=== PATIENT | male | born 1970 | race American Indian/Alaskan Native ===

== ENCOUNTER 2016-10-11 05:41 | Emergency (ER) | payer MEDICAID, OTHER ==
[2016-10-11 05:43] VITALS: BMI 26.3
[2016-10-11 05:56] VITALS: RESP 18
--- NOTE | 2016-10-11 06:13 | ED PDOC ---
Arrival/HPI - General Chief Complaint: Shortness Of Breath Time Seen by Provider: 10/11/16 05:59 Historian: Patient - History of Present Illness Narrative History of Present Illness (Text): 10/11/16 06:03 Ottoniel Rock Jr is a 46 year old male smoker, with no significant past medical history, who presents to the Emergency department brought in by EMS complaining of chest discomfort. Patient states for the past 3 days he has been experiencing chest heaviness with associated shortness of breath and intermittent palpitations. Patient states he used an inhaler at home but denies any significant relief. Patient denies any fever, chills, nausea, vomiting, diarrhea, urinary symptoms, back pain, neck pain, headache, dizziness, or any other complaints. Time/Duration: < week (3 days) Symptom Onset: Gradual Symptom Course: Unchanged, Intermittent Activities at Onset: Rest, Light Context: Home Past Medical History - Provider Review Nursing Documentation Reviewed: Yes - Infectious Disease Hx of Infectious Diseases: None - Past Medical History Past Medical History: No Previous - Cardiac Hx Cardiac Disorders: (rheumatic heart disease 15 yrs old) - Pulmonary Hx Respiratory Disorders: No - Neurological Hx Neurological Disorder: No - HEENT Hx HEENT Disorder: No - Renal Hx Renal Disorder: No - Endocrine/Metabolic Hx Endocrine Disorders: No - Hematological/Oncological Hx Blood Disorders: No - Integumentary Hx Dermatological Disorder: No - Musculoskeletal/Rheumatological Hx Musculoskeletal Disorders: Yes Hx Falls: Yes (fell down stairs 2 yrs ago) - Gastrointestinal Hx Gastrointestinal Disorders: No - Genitourinary/Gynecological Hx Genitourinary Disorders: No - Psychiatric Hx Psychophysiologic Disorder: No Hx Anxiety: No Hx Bipolar Disorder: No Hx Depression: No Hx Emotional Abuse: No Hx Hallucinations: No Hx Panic Disorder: No Hx Post Traumatic Stress Disorder: No Hx Psychosis: No Hx Physical Abuse: No Hx Schizophrenia: No Hx Sexual Abuse: No Hx Substance Use: No - Surgical History Hx Orthopedic Surgery: Yes (FINGER) - Anesthesia Hx Anesthesia: Yes Hx Anesthesia Reactions: No Hx Malignant Hyperthermia: No - Suicidal Assessment Feels Threatened In Home Enviroment: No Family/Social History - Physician Review Nursing Documentation Reviewed: Yes Family/Social History: No Known Family HX Smoking Status: Light Smoker < 10 Cigarettes Daily Hx Alcohol Use: No Hx Substance Use: No Hx Substance Use Treatment: No Allergies/Home Meds Allergies/Adverse Reactions: Allergies No Known Allergies Allergy (Verified 03/16/16 17:57) Home Medications: Home Meds Medication Instructions Recorded Confirmed No Known Home Med 03/16/16 10/11/16 Review of Systems - Physician Review All systems were reviewed & negative as marked: Yes - Review of Systems Constitutional: Normal. absent: Fevers Eyes: Normal ENT: Normal. absent: Epistaxis Respiratory: SOB Cardiovascular: Chest Pain, Palpitations Gastrointestinal: Normal. absent: Abdominal Pain, Diarrhea, Nausea, Vomiting Genitourinary Male: Normal. absent: Dysuria, Frequency, Hematuria, Urinary Output Changes Musculoskeletal: Normal. absent: Back Pain, Neck Pain Skin: Normal. absent: Rash Neurological: Normal. absent: Headache, Dizziness Endocrine: Normal Hemo/Lymphatic: Normal Psychiatric: Normal Physical Exam Vital Signs Reviewed: Yes Vital Signs Temp Pulse Resp BP Pulse Ox 10/11/16 06:02 18 97 10/11/16 05:51 98.2 F 92 H 18 122/82 98 Temperature: Afebrile Blood Pressure: Normal Pulse: Regular Respiratory Rate: Normal Appearance: Positive for: Well-Appearing, Non-Toxic, Comfortable Pain Distress: None Mental Status: Positive for: Alert and Oriented X 3 - Systems Exam Head: Present: Atraumatic, Normocephalic Pupils: Present: PERRL Extroacular Muscles: Present: EOMI Conjunctiva: Present: Normal Mouth: Present: Moist Mucous Membranes Neck: Present: Normal Range of Motion Respiratory/Chest: Present: Clear to Auscultation, Good Air Exchange. No: Respiratory Distress, Accessory Muscle Use Cardiovascular: Present: Regular Rate and Rhythm, Normal S1, S2. No: Murmurs Abdomen: Present: Normal Bowel Sounds. No: Tenderness, Distention, Peritoneal Signs Back: Present: Normal Inspection Upper Extremity: Present: Normal Inspection. No: Cyanosis, Edema Lower Extremity: Present: Normal Inspection. No: Edema Neurological: Present: GCS=15, CN II-XII Intact, Speech Normal Skin: Present: Warm, Dry, Normal Color. No: Rashes Psychiatric: Present: Alert, Oriented x 3, Normal Insight, Normal Concentration Medical Decision Making ED Course and Treatment: 10/11/16 06:03 Impression: 46 year old male complaining of chest heaviness, shortness of breath, and palpitations. Plan: -- EKG -- Chest X-ray -- Labs, cardiac enzymes, D-dimer -- Aspirin -- Reassess and disposition Progress Notes: Reviewed EKG, NSR at 91 bpm. LAD. Septal infarct. Non-specific ST/T wave changes. 10/11/16 7:[address] Hernandez, pending Chest X-ray, labs, re-assessment, and final disposition. - Lab Interpretations Lab Results: 10/11/16 06:20 10/11/16 06:20 Lab Results 10/11/16 06:20: WBC 7.6 D, RBC 4.24, Hgb 13.3 L, Hct 38.7 L, MCV 91.3, MCH 31.4 , MCHC 34.4, RDW 14.4, Plt Count 198, MPV 8.8 10/11/16 06:20: Sodium 140, Potassium 4.6, Chloride 105, Carbon Dioxide 30, Anion Gap 10, BUN 15, Creatinine 1.1, Est GFR ( Amer) > 60, Est GFR (Non- Af Amer) > 60, Random Glucose 148 H, Calcium 9.3, Total Bilirubin 0.7, AST 28, ALT 35, Alkaline Phosphatase 70, Lactate Dehydrogenase 466, Total Creatine Kinase 173, Troponin I < 0.01, Total Protein 7.4, Albumin 4.0, Globulin 3.4, Albumin/Globulin Ratio 1.2 10/11/16 06:20: PT 10.7, INR 0.99, APTT 30.4 - RAD Interpretation Radiology Orders: 10/11/16 06:07 CHEST PORTABLE [RAD] Stat - EKG Interpretation Interpreted by ED Physician: Yes Type: 12 lead EKG - Medication Orders Current Medication Orders: Discontinued Medications Aspirin (Aspirin) 325 mg PO ONCE STA Stop: 10/11/16 06:10 Last Admin: 10/11/16 06:34 Dose: 325 mg - Scribe Statement The provider has reviewed the documentation as recorded by the Silvaibcharlie Galdamez All medical record entries made by the Radha were at my direction and personally dictated by me. I have reviewed the chart and agree that the record accurately reflects my personal performance of the history, physical exam, medical decision making, and the department course for this patient. I have also personally directed, reviewed, and agree with the discharge instructions and disposition. Disposition/Present on Arrival - Present on Arrival Any Indicators Present on Arrival: No History of DVT/PE: No History of Uncontrolled Diabetes: No Urinary Catheter: No History of Decub. Ulcer: No History Surgical Site Infection Following: None - Disposition Have Diagnosis and Disposition been Completed?: No Diagnosis: Chest pain Disposition Time: 07:00 Condition: STABLE Discharge Instructions (ExitCare): Chest Pain (ED) Referrals: Elizabeth Oreilly MD [Primary Care Provider] - Follow up with primary
[2016-10-11 06:30] LABS: HEMATOCRIT 38.7 % (42.0-52.0); MEAN CELL VOLUME 91.3 fL (80.0-105.0); MEAN CORPUSCULAR HEMOGLOBIN 31.4 pg (25.0-35.0); MEAN CORPUSCULAR HGB CONC 34.4 g/dl (31.0-37.0); MEAN PLATELET VOLUME 8.8 fl (7.0-11.0); RED CELL DISTRIBUTION WIDTH 14.4 % (11.5-14.5); WHITE BLOOD COUNT 7.6 10^3/ul (4.5-11.0)
[2016-10-11 06:41] LABS: ALB/GLOB RATIO 1.2 (1.1-1.8); ALKALINE PHOSPHATASE 70 U/L (38-133); ALT/SGPT 35 U/L (7-56); AST/SGOT 28 U/L (15-59); BILIRUBIN,TOTAL 0.7 mg/dL (0.2-1.3); BLOOD UREA NITROGEN 15 mg/dL (7-21); CALCIUM 9.3 mg/dL (8.4-10.5); CARBON DIOXIDE 30 mmol/L (21-33); CHLORIDE 105 mmol/L (98-107); GFR AFRICAN-AMERICAN > 60; GLUCOSE,RANDOM 148 mg/dL (70-110); POTASSIUM 4.6 mmol/L (3.6-5.0); SODIUM 140 mmol/L (132-148); TOTAL PROTEIN 7.4 g/dL (5.8-8.3)
[2016-10-11 06:46] LABS: INR 0.99 (0.93-1.08); PARTIAL THROMBOPLASTIN TIME 30.4 Seconds (23.7-30.8)
[2016-10-11 07:04] LABS: TROPONIN I < 0.01 ng/mL
[2016-10-11] MEDS ORDERED: Iodixanol 320 MG/ML 100 ML BOTTLE IV ONE (07:44)
[2016-10-11 08:00] VITALS: TEMP 97.9
--- NOTE | 2016-10-11 09:03 | CT ---
PROCEDURE: CT Chest with contrast (Pulmonary Angiogram) HISTORY: sob, elev dimer r/o PE COMPARISON: None available. TECHNIQUE: Axial computed tomography images were obtained of the chest in the pulmonary arterial phase of enhancement. Coronal and sagittal reformatted images were created and reviewed. Intravenous contrast dose: 100 cc of Omnipaque 300 Radiation dose: Total exam DLP = 397 mGy-cm. This CT exam was performed using one or more of the following dose reduction techniques: Automated exposure control, adjustment of the mA and/or kV according to patient size, and/or use of iterative reconstruction technique. FINDINGS: PULMONARY ARTERIES: Limited by timing of intravenous bolus. No pulmonary embolism. AORTA: No acute findings. No thoracic aortic aneurysm. LUNGS: Patchy consolidation in the left lower lobe as well as additional patchy areas of infiltrate in the left upper lobe and right upper lobe. 5 millimeter nodule in the medial segment of the right upper lobe. PLEURAL SPACES: Unremarkable. No effusion or pneuomothorax. HEART: Unremarkable. No cardiomegaly. No significant pericardial effusion. LYMPH NODES: No lymphadenopathy. BONES, CHEST WALL: Unremarkable. No fracture or destructive lesion OTHER FINDINGS: Unremarkable. IMPRESSION: Extensive bilateral patchy infiltrates most notably in the medial segment of the left lower lobe with consolidation. No gross pulmonary embolism.
[2016-10-11] MEDS ORDERED: levoFLOXacin 750 MG TAB PO STA (09:18)
[2016-10-11 10:03] VITALS: BP 145/79; PULSE 78; O2SAT 98
--- NOTE | 2016-10-11 10:43 | ED PDOC ---
Physical Exam Vital Signs Reviewed: Yes Vital Signs Temp Pulse Resp BP Pulse Ox 10/11/16 09:00 78 18 145/79 98 10/11/16 07:00 97.9 F 77 18 141/71 99 10/11/16 06:02 18 97 10/11/16 05:51 98.2 F 92 H 18 122/82 98 Temperature: Afebrile Blood Pressure: Normal Pulse: Regular Respiratory Rate: Normal Appearance: Positive for: Well-Appearing, Non-Toxic, Comfortable Pain Distress: None Mental Status: Positive for: Alert and Oriented X 3 Medical Decision Making ED Course and Treatment: 10/11/16 07:00 Case signed out to me from overnight by Dr. Alvarez, pending imaging, reevaluation, and disposition. The patient is a 46 year old male who came into the emergency department earlier today for evaluation of chest discomfort. Patient had a EKG which showed a NSR at 91 BPM with LAD and septal infarct. On reevaluation, the patient is resting comfortably. 10/11/16 07:30 Chest X-ray impression: As read by me, bilateral patchy infiltrates. Will order a Chest CT. 10/11/16 09:[address]: Creator : Severo Jacobson MD COMPARISON: None available. FINDINGS: PULMONARY ARTERIES: Limited by timing of intravenous bolus. No pulmonary embolism. AORTA: No acute findings. No thoracic aortic aneurysm. LUNGS: Patchy consolidation in the left lower lobe as well as additional patchy areas of infiltrate in the left upper lobe and right upper lobe. 5 millimeter nodule in the medial segment of the right upper lobe. PLEURAL SPACES: Unremarkable. No effusion or pneuomothorax. HEART: Unremarkable. No cardiomegaly. No significant pericardial effusion. LYMPH NODES: No lymphadenopathy. BONES, CHEST WALL: Unremarkable. No fracture or destructive lesion OTHER FINDINGS: Unremarkable. IMPRESSION: Extensive bilateral patchy infiltrates most notably in the medial segment of the left lower lobe with consolidation. No gross pulmonary embolism. 10/11/16 09:09 On re-evaluation, the patient feels better and is in no acute distress. No respiratory distress. No tachpnea. WBC nl. No fever. Vitals nl. Oxy sat normal. I have discussed the results and plan with the patient, who expresses understanding. Patient in agreement with plan to discharged home with Levaquin and Albuterol. Patient is stable for discharge. Patient was instructed to follow up with physician/clinic in 1-2 days or return if symptoms worsen or new concerning symptoms arise. - Lab Interpretations Lab Results: 10/11/16 06:20 10/11/16 06:20 Lab Results 10/11/16 06:20: D-Dimer, Quantitative 0.56 H 10/11/16 06:20: WBC 7.6 D, RBC 4.24, Hgb 13.3 L, Hct 38.7 L, MCV 91.3, MCH 31.4 , MCHC 34.4, RDW 14.4, Plt Count 198, MPV 8.8 10/11/16 06:20: Sodium 140, Potassium 4.6, Chloride 105, Carbon Dioxide 30, Anion Gap 10, BUN 15, Creatinine 1.1, Est GFR ( Amer) > 60, Est GFR (Non- Af Amer) > 60, Random Glucose 148 H, Calcium 9.3, Total Bilirubin 0.7, AST 28, ALT 35, Alkaline Phosphatase 70, Lactate Dehydrogenase 466, Total Creatine Kinase 173, Troponin I < 0.01, Total Protein 7.4, Albumin 4.0, Globulin 3.4, Albumin/Globulin Ratio 1.2 10/11/16 06:20: PT 10.7, INR 0.99, APTT 30.4 I have reviewed the lab results: Yes - RAD Interpretation Radiology Orders: 10/11/16 06:07 CHEST PORTABLE [RAD] Stat 10/11/16 07:30 ANGIO CHEST PE PROTOCOL [CT] Stat - Medication Orders Current Medication Orders: Discontinued Medications Aspirin (Aspirin) 325 mg PO ONCE STA Stop: 10/11/16 06:10 Last Admin: 10/11/16 06:34 Dose: 325 mg Iodixanol (Visipaque 320 Mg/Ml 100 Ml) Confirm Administered Dose 100 ml IV .STK- MED ONE Stop: 10/11/16 07:45 Levofloxacin (Levaquin) 750 mg PO STAT STA Stop: 10/11/16 09:19 Last Admin: 10/11/16 10:02 Dose: 750 mg - Scribe Statement The provider has reviewed the documentation as recorded by the Radha Aguayo Provider Silvaibe Attestation: All medical record entries made by the Silvaibcharlie were at my direction and personally dictated by me. I have reviewed the chart and agree that the record accurately reflects my personal performance of the history, physical exam, medical decision making, and the department course for this patient. I have also personally directed, reviewed, and agree with the discharge instructions and disposition. Disposition/Present on Arrival - Present on Arrival Any Indicators Present on Arrival: No History of DVT/PE: No History of Uncontrolled Diabetes: No Urinary Catheter: No History of Decub. Ulcer: No History Surgical Site Infection Following: None - Disposition Have Diagnosis and Disposition been Completed?: Yes Diagnosis: Chest pain, Pneumonia Disposition: HOME/ ROUTINE Disposition Time: 09:09 Patient Plan: Discharge Condition: IMPROVED Discharge Instructions (ExitCare): Chest Pain (ED) Additional Instructions: Mr Rock, thank you for letting us take care of you today. Your provider was Dr. Hernandez. You were treated for Pneumonia. The emergency medical care you received today was directed at your acute symptoms. If you were prescribed any medication, please fill it and take as directed. It may take several days for your symptoms to resolve. Return to the Emergency Department if your symptoms worsen, do not improve, or if you have any other problems. Please contact your doctor or call one of the physicians/clinics you have been referred to that are listed on the Patient Visit Information form that is included in your discharge packet. Bring any paperwork you were given at discharge with you along with any medications you are taking to your follow up visit. Our treatment cannot replace ongoing medical care by a primary care provider (PCP) outside of the emergency department. Thank you for allowing the [facility] [employer] team to be part of your care today. If you had an X-Ray or CT scan: A Radiologist will review the ED reading if any change in treatment is needed we will contact you. If you had a blood, urine, or wound culture: It will take several days for the results, if any change in treatment is needed we will contact you. If you had an STI test: It will take 48 hours for the results. Please call after 1 week if you have not heard back. Prescriptions: Albuterol 0.083% [Albuterol 0.083% Inhal Vonda (2.5 mg/3 ml) UD] 2.5 mg IH PRN PRN #1 neb PRN Reason: Shortness Of Breath Levofloxacin [Levaquin] 750 mg PO DAILY #4 tablet Referrals: Elizabeth Oreilly MD [Primary Care Provider] - Follow up with primary Forms: [employer] (Finnish), WORK NOTE
--- NOTE | 2016-10-11 11:39 | RAD ---
PROCEDURE: CHEST RADIOGRAPH, 1 VIEW HISTORY: sob COMPARISON: None available. FINDINGS: LUNGS: Clear. PLEURA: No pneumothorax or pleural fluid seen. CARDIOVASCULAR: Normal. OSSEOUS STRUCTURES: No significant abnormalities. VISUALIZED UPPER ABDOMEN: Normal. OTHER FINDINGS: None. IMPRESSION: No active disease.
--- NOTE | 2016-10-11 18:51 | CARD ---
APPROVED REPORT EKG Measurement Heart [id number] <Conclusion> Normal sinus rhythm Possible Left atrial enlargement Left axis deviation Septal infarct, age undetermined Abnormal ECG
== END 2016-10-11 10:06 | disposition home or self-care (01) ==
LOC: ED 05:41
DX: R07.9 Chest pain, unspecified (principal)
CPT/HCPCS: 71010; 71275; 80053; 82550; 83615; 84484; 85027; 85378; 85610; 85730; 93005; 99284; Q9967

== ENCOUNTER 2016-10-11 11:41 | Emergency (ER) | payer SELFPAY ==
[2016-10-11 11:46] VITALS: BMI 25.9
[2016-10-11 11:55] VITALS: RESP 18; TEMP 98.4
--- NOTE | 2016-10-11 12:08 | ED PDOC ---
Arrival/HPI - General Chief Complaint: Anxiety Time Seen by Provider: 10/11/16 11:42 Historian: Patient - History of Present Illness Narrative History of Present Illness (Text): 10/11/16 11:42 A 46 year old male, who denies any significant past medical history, present to the emergency department complaining of shortness of breath. Patient reports he was just in the emergency department and discharged home. He states he went home to collect his belongs because he got into an argument with his , when he started to get anxious. Patient notes the anxiousness is associated with shortness of breath, which has improved with oxygen here in the emergency department. Typically he doesn't get short of breathe this much but he thinks the Pneumonia has made it worse. Patient denies any fever, chills, nausea, vomiting or other complaints at this time. PMD: Dr. Oreilly Time/Duration: Prior to Arrival Symptom Onset: Sudden Symptom Course: Improving Quality: Other Activities at Onset: Rest Context: Home Past Medical History - Provider Review Nursing Documentation Reviewed: Yes - Infectious Disease Hx of Infectious Diseases: None - Past Medical History Past Medical History: No Previous - Cardiac Hx Cardiac Disorders: Yes (rheumatic heart disease 15 yrs old) - Pulmonary Hx Respiratory Disorders: No - Neurological Hx Neurological Disorder: No - HEENT Hx HEENT Disorder: No - Renal Hx Renal Disorder: No - Endocrine/Metabolic Hx Endocrine Disorders: No - Hematological/Oncological Hx Blood Disorders: No - Integumentary Hx Dermatological Disorder: No - Musculoskeletal/Rheumatological Hx Musculoskeletal Disorders: Yes Hx Falls: Yes (fell down stairs 2 yrs ago) - Gastrointestinal Hx Gastrointestinal Disorders: No - Genitourinary/Gynecological Hx Genitourinary Disorders: No - Psychiatric Hx Psychophysiologic Disorder: No Hx Anxiety: No Hx Bipolar Disorder: No Hx Depression: No Hx Emotional Abuse: No Hx Hallucinations: No Hx Panic Disorder: No Hx Post Traumatic Stress Disorder: No Hx Psychosis: No Hx Physical Abuse: No Hx Schizophrenia: No Hx Sexual Abuse: No Hx Substance Use: No - Surgical History Hx Orthopedic Surgery: Yes (FINGER) - Anesthesia Hx Anesthesia: Yes Hx Anesthesia Reactions: No Hx Malignant Hyperthermia: No - Suicidal Assessment Feels Threatened In Home Enviroment: No Family/Social History - Physician Review Nursing Documentation Reviewed: Yes Family/Social History: Unknown Family HX Smoking Status: Light Smoker < 10 Cigarettes Daily Hx Alcohol Use: No Hx Substance Use: No Hx Substance Use Treatment: No Allergies/Home Meds Allergies/Adverse Reactions: Allergies No Known Allergies Allergy (Verified 10/11/16 11:46) Review of Systems - Physician Review All systems were reviewed & negative as marked: Yes - Review of Systems Constitutional: absent: Fevers Respiratory: SOB Gastrointestinal: absent: Nausea, Vomiting Psychiatric: Anxiety Physical Exam Vital Signs Reviewed: Yes Vital Signs Temp Pulse Resp BP Pulse Ox 10/11/16 11:53 98.4 F 95 H 18 115/74 98 Temperature: Afebrile Blood Pressure: Normal Pulse: Regular Respiratory Rate: Normal Appearance: Positive for: Well-Appearing, Non-Toxic, Comfortable Pain Distress: None Mental Status: Positive for: Alert and Oriented X 3 - Systems Exam Head: Present: Atraumatic, Normocephalic Pupils: Present: PERRL Extroacular Muscles: Present: EOMI Conjunctiva: Present: Normal Mouth: Present: Moist Mucous Membranes Neck: Present: Normal Range of Motion Respiratory/Chest: Present: Clear to Auscultation, Good Air Exchange. No: Respiratory Distress, Accessory Muscle Use Cardiovascular: Present: Regular Rate and Rhythm, Normal S1, S2. No: Murmurs Abdomen: Present: Normal Bowel Sounds. No: Tenderness, Distention, Peritoneal Signs Back: Present: Normal Inspection Upper Extremity: Present: Normal Inspection. No: Cyanosis, Edema Lower Extremity: Present: Normal Inspection. No: Edema Neurological: Present: GCS=15, CN II-XII Intact, Speech Normal Skin: Present: Warm, Dry, Normal Color. No: Rashes Psychiatric: Present: Alert, Oriented x 3, Normal Insight, Normal Concentration Medical Decision Making ED Course and Treatment: 10/11/16 11:42 Impression: A 46 year old male with shortness of breath. Differential Diagnosis include but are not limited to: Pneumonia Plan: -- Blood cultures -- Already treated with Levaquin this morning -- Admission Patient was with police because a domestic issue was called. Prior Visits: Notes and results from previous visits were reviewed. The patient was in the emergency department earlier today and he was found to have pneumonia. Patient was discharged home and instructed to follow up with PMD. Progress Notes: Case discussed with Dr. Oreilly, who is aware and accepts the patient to her services for pneumonia. I have discussed the results and plan with the patient, who expresses understanding. Patient given the opportunity to ask question, all questions were answered and there is agreement with the plan to be admitted to the hospital. - Scribe Statement The provider has reviewed the documentation as recorded by the Radha Aguayo Provider Silvaibe Attestation: All medical record entries made by the Silvaibe were at my direction and personally dictated by me. I have reviewed the chart and agree that the record accurately reflects my personal performance of the history, physical exam, medical decision making, and the department course for this patient. I have also personally directed, reviewed, and agree with the discharge instructions and disposition. Disposition/Present on Arrival - Present on Arrival Any Indicators Present on Arrival: No History of DVT/PE: No History of Uncontrolled Diabetes: No Urinary Catheter: No History of Decub. Ulcer: No History Surgical Site Infection Following: None - Disposition Have Diagnosis and Disposition been Completed?: Yes Diagnosis: Pneumonia Disposition: HOSPITALIZED Disposition Time: 11:42 Patient Plan: Admission Condition: FAIR
[2016-10-11 13:49] VITALS: BP 106/63; PULSE 78; O2SAT 96
== END 2016-10-11 13:57 | disposition left against medical advice (07) ==
LOC: ED 11:41 → UNDOADMIN 12:01 → ERH 12:01
DX: J18.9 Pneumonia, unspecified organism (principal); Z72.0 Tobacco use